=== PATIENT | male | born 1955 | race Caucasian/White ===

== ENCOUNTER 2020-06-18 13:12 | Outpatient (REF) | payer OTHER, SELFPAY ==
--- NOTE | 2020-06-18 15:22 | MHC.AU.AHA ---
Adult Audiological Evaluation Date of Visit: 06/18/20 Reason for Appointment: History of hearing loss. Patient arrives to determine if there has been a change in hearing. Previous Hearing Test Results: [facility] on 08/24[facility]2016- Normal sloping to moderate sensorineural hearing loss bilaterally Ear History: Ear Deformity: None Reported Recent Ear Drainage: None Reported Recent Ear Pain: None Reported Recent Ear Infections: None Reported History of Ear Wax Buildup: Both Ears Bothersome Tinnitus/Ringing/Noises in Ears: Both Ears Hearing Instrument History- Right Ear: Coater Slate: PhonYelp Model: Anpath Groupta BTE Serial Number: [id number] Battery Size: 13 Repair Warranty: Loss and Damage Warranty: Dispensed By: [facility] Date of Fittin08/19/2009 Hearing Instrument History- Left Ear: Coater Slate: Omedixak Model: Anpath Groupta BTE Serial Number: [id number] Battery Size: 13 Warranty: Loss and Damage Warranty: Dispensed By: [facility] Date of Fittin08/19/2009 Otoscopy: Right Ear: Completely occluded w/cerumen- cerumen removal performed Left Ear: Completely occluded w/cerumen- cerumen removal performed Tympanometry: Tympanometry performed due to: To assess integrity of the middle ear system Right Ear: Normal Middle Ear System (Type A) Left Ear: Normal Middle Ear System (Type A) Hearing Evaluation: Transducer(s) Used: Circumaural Headphones Method: Conventional Audiometry Stimuli Used: Pure Tones Right Ear: Description of Hearing: Normal sloping to severe sensorineural hearing loss Left Ear: Description of Hearing: Normal sloping to moderately-severe sensorineural hearing loss Speech Recognition Threshold (SRT): Method Used: Recorded Lists Stimuli Used: Spondee Words Right Ear: 20 dBHL Left Ear: 20 dBHL Word Discrimination: Method: Recorded Lists Word Lists Used: NU-6 Right Ear: 88% at 60 dBHL Left Ear: 100% at 60 dBHL Most Comfortable Level (MCL): Right Ear: 60 dBHL Left Ear: 60 dBHL QuickSIN: 2 dB SNR Loss, suggesting normal level of difficulty hearing in noise Comparison: Compared to most recent evaluation: Small decrease in hearing at 6000 and 8000 Hz bilaterally; otherwise, hearing is stable. Recommendations: Audiological re-evaluation in one year. Patient is interested in new amplification. See Hearing Aid Evaluation report for details. Cerumen removal performed today. All cerumen was able to be removed from the right ear. Some cerumen persists deep in the left ear; however, it is not completely occluded. Areas of irritation noted bilaterally after cerumen removal, likely due to impacted cerumen having adhered to the canal skin. Advised use of drops, such as Debrox or EarWaxMD, in the left ear before the next visit. If it is softened enough, we may be able to remove the remaining cerumen by suction at the hearing aid fitting appointment. Diagnosis: Primary Diagnosis: H90.3 Bilateral Sensorineural Hearing Loss Services Performed: Comprehensive Audiological Evaluation (CPT 25053), Tympanometry (CPT 24049) Signature: Provider: Verna Elizalde, CCC-A
== END 2020-06-18 13:13 | disposition home or self-care (01) ==
LOC: HO.SH 13:12
PROVIDERS: Visit Provider Family Medicine
DX: H90.3 Sensorineural hearing loss, bilateral (principal)
CPT/HCPCS: 92557; 92567

== ENCOUNTER 2020-06-18 14:35 | Outpatient (REF) | payer SELFPAY ==
--- NOTE | 2020-06-18 15:46 | MHC.AU.HAS ---
Hearing Aid Evaluation Date of Visit: 06/18/20 Historical Information: Description of Hearing: Right: Normal to severe sensorineural hearing loss Left: Normal to moderately-severe sensorineural hearing loss Current personal amplification information, if applicable: Phonak Versata BTEs, obtained in 2009 Summary: Patient was seen today for audiological re-evaluation (see separate report for details). He is interested in obtaining a new pair of hearing aids. His current ones are from 2009, and the slim tubes are no longer available from [facility]. Hearing aid options discussed. He would like to stay with disposable batteries. 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 It was decided that a mid-level product would best fit his listening needs. Patient's current hearing aids have custom skeleton molds. He tried using domes before, and they frequently fell out of his ear. Impressions were taken today for skeleton molds to go along with his new hearing aids. Hearing Aid Prescription: Based on the individual?s shared listening needs, communication environments, dexterity, desire for connectivity, and personal preferences, the following prescription for amplification has been made: Right ear: Chief Diversity Officer: Phonak Model: Audeo P70-13T Battery Size: 13 Color: P1 Sales And Marketing Vice President: 0M Type of Mold: Slim tip skeleton mold Left ear: Left ear prescription to be same as Right Hearing Aid above: Chief Diversity Officer: Phonak Model: Audeo P70-13T Battery Size: 13 Color: P1 Sales And Marketing Vice President: 0M Type of Mold: Slim Tip Skeleton Mold Accessories/Assistive Technology Recommended: TV Connector through Phonak Promo Action Taken/Action Needed: Earmold Impressions Taken Medical Clearance to be requested from PCP/ENT Hearing Fitting to be scheduled when materials arrive Paid $350 deposit. Will need itemized receipt at fitting to submit to [facility]. Primary Diagnosis: H90.3 Bilateral Sensorineural Hearing Loss Signature: Provider: Verna Elizalde, CCC-A
--- NOTE | 2020-06-22 10:56 | MHC.AU.MED ---
Medical Clearance for Hearing Instrumentation Date: 06/22/20 Patient Name: Tye Conte Date of : 1955 Referring Provider: Mickey Rey MD We have seen your patient on 06/18/20 and have determined that they are a candidate for amplification (See accompanying report). Specifically, they would benefit from: Hearing aid use in both ears There is a statute that addresses Medical Evaluation Requirements prior to fitting a patient with a hearing aid. According to [place] statute [facility] CMR:6.03(1), (a) General. Except as provided in 265 CMR 6.03(1)(b), a hearing care practitioner shall not sell a hearing aid unless the prospective user has presented to the hearing care practitioner a written statement signed by a licensed physician that states that the patient's hearing loss has been medically evaluated and the patient may be considered a candidate for a hearing aid. The medical evaluation must have taken place within the preceding six months. Please note: Due to the [place] Statute referenced above, we cannot accept a signature other than that of a licensed physician. SOLE BUFFER and PA signatures cannot be accepted. I am in agreement with the above recommendation. There is no medical contraindication for hearing instrumentation. Physician Signature Date Physician Name (Printed)
== END 2020-06-18 14:36 | disposition home or self-care (01) ==
LOC: HO.HAP 14:35
PROVIDERS: Visit Provider Family Medicine
DX: H90.3 Sensorineural hearing loss, bilateral (principal); Z46.1 Encounter for fitting and adjustment of hearing aid
CPT/HCPCS: 92591

== ENCOUNTER 2020-07-13 08:18 | Outpatient (REF) | payer OTHER, SELFPAY ==
--- NOTE | 2020-07-13 10:42 | MHC.AU.HFA ---
Hearing Instrument Fitting- Adult- Binaural Date of Visit: 07/13/20 Hearing Instruments Dispensed: Right Ear: Professional Nursing Tutor: Phonak Model: Vernaeo P70-13T Serial Number: [id number] Repair Warranty: 09/09/2023 Loss and Damage Warranty: 09/09/2023 Service Plan: 09/09/2023 Battery Size: 13 Color: P1 Director Of It Operations: 0M Type of Mold: Slim tip skeleton mold #[id number] Warranty 10/30/2020 Left Ear: Professional Nursing Tutor: Phonak Model: Vernaeo P70-13T Serial Number: [id number] Repair Warranty: 09/29/2023 Loss and Damage Warranty: 09/29/2023 Service Plan: 09/29/2023 Battery Size: 13 Color: P1 Director Of It Operations: 0M Type of Mold: Slim Tip Skeleton Mold #[id number] Warranty 10/30/2020 Summary of Fitting: Patient has been using Debrox since his last appointment, as advised. The impacted cerumen in the left ear appeared much softer. Suction was used to remove the cerumen. Canal is clear and tympanic membrane is fully visible. Slight irritation noted at bottom of ear canal. Feedback training and development manager run. Verifit performed and levels adjusted to better reach targets. Target gain set to 100%. Patient was pleased with the sound of the instruments. He reports they sound more clear than his previous pair, and he feels he is hearing more sounds that he did not previously hear. Volume control button is activated. Hearing aid care and maintenance discussed and practiced. Hearing aids were paired to his phone. Tried to pair the hearing aids to the vani, and it was unable to find them. In the past when I have contacted [employer] about this issue, they have said some phones need to be connected to wifi when pairing to the vani. He will pair them to the vani at home. Recommendations: A hearing instrument follow-up was scheduled. Paid the $3850 balance. Gave patient itemized receipt to submit to his insurance. Diagnosis Code(s): Primary Diagnosis: H90.3 Bilateral Sensorineural Hearing Loss Signature: Provider: Verna Elizalde, STEPHANIE-A
== END 2020-07-13 08:19 | disposition home or self-care (01) ==
LOC: HO.HAP 08:18
PROVIDERS: Visit Provider Family Medicine
DX: Z46.1 Encounter for fitting and adjustment of hearing aid (principal); H90.3 Sensorineural hearing loss, bilateral
CPT/HCPCS: V5261

== ENCOUNTER 2020-07-27 08:45 | Outpatient (REF) | payer SELFPAY ==
--- NOTE | 2020-07-27 14:26 | MHC.AU.HFU ---
Hearing Instrument Follow-Up- Binaural Date of Visit: 07/27/20 Right Ear: Miller Head: Phonak Model: Audeo P70-13T Serial Number: [id number] Repair Warranty: 09/09/2023 Loss and Damage Warranty: 09/09/2023 Service Plan: 09/09/2023 Battery Size: 13 Color: P1 Applications Engineer: 0M Type of Mold: Slim tip skeleton mold #[id number] Warranty 10/30/2020 Type of Wax Guard: CeruStop Dispensed By: [facility] Date of Fittin07/13/2020 Left Ear: Miller Head: Phonak Model: Audeo P70-13T Serial Number: [id number] Repair Warranty: 09/29/2023 Loss and Damage Warranty: 09/29/2023 Service Plan: 09/29/2023 Battery Size: 13 Color: P1 Applications Engineer: 0M Type of Mold: Slim Tip Skeleton Mold #[id number] Warranty 10/30/2020 Type of Wax Guard: CeruStop Dispensed By: [facility] Date of Fittin07/13/2020 Follow-Up Summary: Patient arrives for hearing aid follow-up. He reports the hearing aids have been working well. He has noticed a significant improvement in the quality of the technology over his 11 year old instruments. He feels they handle background noise much better and sound clearer. He has noticed that his voice, especially while singing, can have an underwater quality. Increased Occlusion Compensation to medium and lowered low-mid frequency gain by 2 steps. Patient reported an improvement in perception of his voice. Patient tried to pair the hearing aids to the vani at home. As in the office, it continued to search and was unable to find the hearing aids. He reports the overall Bluetooth usage with the phone has been great otherwise. Contacted Audiology at [facility] to troubleshoot. Patient's phone is not compatible with the vani. If he gets a new phone in the future, we would be happy to assist him with setting up the vani if needed. Since patient cannot use the vani to access programs, a Music program was added as program 1 and the program button was enabled. Recommendations: Hearing instrument maintenance in 6 months, or sooner if needed. Please contact our clinic with any questions or concerns. Diagnosis Code(s): Primary Diagnosis: H90.3 Bilateral Sensorineural Hearing Loss Signature: Provider: Verna Elizalde, CCC-A
== END 2020-07-27 08:46 | disposition home or self-care (01) ==
LOC: HO.HAP 08:45
PROVIDERS: Visit Provider Family Medicine
DX: Z13.89 Encounter for screening for other disorder (principal)

== ENCOUNTER 2021-01-08 14:46 | Outpatient (REF) | payer SELFPAY | END 2021-01-08 14:47 | disposition home or self-care (01) | LOC: HO.HAP 14:46 | PROVIDERS: Visit Provider Family Medicine | DX: Z46.1 Encounter for fitting and adjustment of hearing aid (principal); H90.3 Sensorineural hearing loss, bilateral | CPT/HCPCS: V5267 ==

== ENCOUNTER 2021-06-07 08:46 | Outpatient (REF) | payer SELFPAY | END 2021-06-07 08:47 | disposition home or self-care (01) | LOC: HO.HAP 08:46 | PROVIDERS: Visit Provider Family Medicine | DX: Z13.89 Encounter for screening for other disorder (principal) ==

== ENCOUNTER 2021-08-17 11:05 | Outpatient (REF) | payer SELFPAY | END 2021-08-17 11:06 | disposition home or self-care (01) | LOC: HO.HAP 11:05 | PROVIDERS: Visit Provider Family Medicine | DX: Z46.1 Encounter for fitting and adjustment of hearing aid (principal); H90.3 Sensorineural hearing loss, bilateral | CPT/HCPCS: V5267 ==

== ENCOUNTER 2021-10-29 12:31 | Outpatient (REF) | payer SELFPAY ==
--- NOTE | 2021-11-01 10:03 | MHC.AU.HFU ---
Hearing Instrument Follow-Up- Binaural Date of Visit: 10/29/21 Right Ear: Melter Supervisor Open Hearth Furnace: Phonak Model: Audeo P70-13T Serial Number: [id number] Repair Warranty: 09/09/2023 Loss and Damage Warranty: 09/09/2023 Service Plan: 09/09/2023 Battery Size: 13 Left Ear: Melter Supervisor Open Hearth Furnace: Phonak Model: Audeo P70-13T Serial Number: [id number] Repair Warranty: 09/29/2023 Loss and Damage Warranty: 09/29/2023 Service Plan: 09/29/2023 Battery Size: 13 Follow-Up Summary: Patient reports his left slim tip recently broke. It is still usable, but there is a large portion of the outer canal area missing. Hearing aid maintenance performed- molds cleaned, wax guards replaced, microphones vacuumed. It was noted during cleaning that a small portion of the right mold was missing as well. Patient would like to do a new pair of molds. Discussed either using Phonak again or trying another mold manager internal, as the Phonak slim tips are fairly thin/fragile. He would like to try [employer]. Impressions were taken without incident and sent to [employer]- ordered skeleton-style in Acrylic clear with medium vent. Recommendations: Patient will be contacted when materials have arrived. Diagnosis Code(s): Primary Diagnosis: H90.3 Bilateral Sensorineural Hearing Loss Signature: Provider: Verna Elizalde, [facility]
== END 2021-10-29 12:32 | disposition home or self-care (01) ==
LOC: HO.HAP 12:31
PROVIDERS: Visit Provider Family Medicine
DX: Z13.89 Encounter for screening for other disorder (principal)

== ENCOUNTER 2021-12-10 11:17 | Outpatient (REF) | payer SELFPAY | END 2021-12-10 11:18 | disposition home or self-care (01) | LOC: HO.HAP 11:17 | PROVIDERS: Visit Provider Family Medicine | DX: Z46.1 Encounter for fitting and adjustment of hearing aid (principal); H90.3 Sensorineural hearing loss, bilateral | CPT/HCPCS: 92700 ==

== ENCOUNTER 2021-12-17 14:23 | Outpatient (REF) | payer SELFPAY | END 2021-12-17 14:24 | disposition home or self-care (01) | LOC: HO.HAP 14:23 | PROVIDERS: Visit Provider Family Medicine | DX: Z13.89 Encounter for screening for other disorder (principal) ==

== ENCOUNTER 2022-01-14 12:53 | Outpatient (REF) | payer SELFPAY | END 2022-01-14 12:54 | disposition home or self-care (01) | LOC: HO.HAP 12:53 | PROVIDERS: Visit Provider Family Medicine | DX: Z13.89 Encounter for screening for other disorder (principal) ==

== ENCOUNTER 2022-01-18 09:32 | Outpatient (REF) | payer SELFPAY | END 2022-01-18 09:33 | disposition home or self-care (01) | LOC: HO.HAP 09:32 | PROVIDERS: Visit Provider Family Medicine | DX: Z13.89 Encounter for screening for other disorder (principal) ==

== ENCOUNTER 2022-01-27 09:47 | Outpatient (REF) | payer OTHER, SELFPAY | END 2022-01-27 09:48 | disposition home or self-care (01) | LOC: HO.SH 09:47 | PROVIDERS: Visit Provider Family Medicine | DX: Z01.118 Encounter for examination of ears and hearing with other abnormal findings (principal); H90.3 Sensorineural hearing loss, bilateral | CPT/HCPCS: 92557; 92567 ==

== ENCOUNTER 2022-03-16 11:27 | Outpatient (REF) | payer SELFPAY | END 2022-03-16 11:28 | disposition home or self-care (01) | LOC: HO.HAP 11:27 | PROVIDERS: Visit Provider Family Medicine | DX: Z46.1 Encounter for fitting and adjustment of hearing aid (principal); H90.3 Sensorineural hearing loss, bilateral | CPT/HCPCS: V5267 ==

== ENCOUNTER 2022-08-08 09:59 | Outpatient (REF) | payer SELFPAY ==
--- NOTE | 2022-08-08 10:36 | MHC.AU.HA3 ---
Hearing Instrument Follow-Up- Binaural Date of Visit: 08/08/22 Right Ear: Pola, Model, Color, Serial Number: Allan Liu P70-13T #[id number] Color: Yodit Beige Rail Splitter Repair Warranty: 09/09/2023 Rail Splitter Loss and Damage Warranty: 09/09/2023 [facility] Service Plan: 09/09/2023 Battery Size: 13 Visual Designer/Slim Tube: 0M Earmold/Dome/CShell/SlimTip:Phonak SlimTip w/skeleton lock, #[id number], Warranty 03/28/2022 Type of Wax Guard: CeruStop Dispensed By: [facility] Date of Fittin07/13/2020 Left Ear: Pola, Model, Color, Serial Number: Allan Liu P70-13T, [id number] Color: Sand Beige Rail Splitter Repair Warranty: 09/29/2023 Rail Splitter Loss and Damage Warranty: 09/29/2023 [facility] Service Plan: 09/29/2023 Battery Size: 13 Visual Designer/Slim Tube: 0M Earmold/Dome/CShell/SlimTip: Phonak SlimTip w/skeleton lock, #[id number], Warranty 03/28/2022 Type of Wax Guard: CeruStop Dispensed By: [facility] Date of Fittin07/13/2020 Follow-Up Summary: Tye returned for a clean and check of his hearing aids. Cleaned both hearing aids and earmolds. Replaced all 4 wax guards (2 on receivers and 2 on ear molds). Vacuumed microphones. A listening check demonstrated that the hearing aids are in good working order. Otoscopy revealed slight wax, bilaterally, with left greater than right. Cerumen removal not necessary at this time. Tye has been otherwise happy with his hearing aids and has no other concerns. Recommendations: Hearing instrument follow-up or maintenance as needed. Diagnosis Code(s): Primary Diagnosis: H90.3 Bilateral Sensorineural Hearing Loss Signature: Provider: Renae Fraser, [facility]
== END 2022-08-08 10:00 | disposition home or self-care (01) ==
LOC: HO.HAP 09:59
PROVIDERS: Visit Provider Family Medicine
DX: Z13.89 Encounter for screening for other disorder (principal)

== ENCOUNTER 2022-11-09 14:08 | Outpatient (REF) | payer SELFPAY | END 2022-11-09 14:09 | disposition home or self-care (01) | LOC: HO.HAP 14:08 | PROVIDERS: Visit Provider Family Medicine | DX: Z13.89 Encounter for screening for other disorder (principal) ==

== ENCOUNTER 2023-05-12 08:36 | Outpatient (REF) | payer SELFPAY ==
--- NOTE | 2023-05-12 10:18 | MHC.AU.HA3 ---
Hearing Instrument Follow-Up- Binaural Date of Visit: 05/12/23 Right Ear: Pola, Model, Color, Serial Number: Allan Liu P70-13T SN: [id number] Color: Sand Beige Real Estate Closer Repair Warranty: 09/09/2023 Real Estate Closer Loss and Damage Warranty: 09/09/2023 [facility] Service Plan: 09/09/2023 Battery Size: 13 Rn Eligibility/Slim Tube: 0M Earmold/Dome/CShell/SlimTip:Phonak SlimTip w/skeleton lock, #[id number], Warranty 03/28/2022 Type of Wax Guard: CeruStop Dispensed By: [facility] Date of Fittin07/13/2020 Left Ear: Pola, Model, Color, Serial Number: Allan Liu P70-13T SN: [id number] Color: Sand Beige Real Estate Closer Repair Warranty: 09/09/2023 Real Estate Closer Loss and Damage Warranty: 09/09/2023 [facility] Service Plan: 09/09/2023 Battery Size: 13 Rn Eligibility/Slim Tube: 0M Earmold/Dome/CShell/SlimTip: Phonak SlimTip w/skeleton lock, #[id number], Warranty 03/28/2022 Type of Wax Guard: CeruStop Dispensed By: [facility] Date of Fittin07/13/2020 Follow-Up Summary: Here for hearing aid cleaning. Reports no concerns at this time. Happy with the hearing aids. Cleaned aids and molds, replaced wax guards, listening check positive. Recommendations: Recommendations: Hearing instrument maintenance in 6 months, or sooner if needed. Diagnosis Code(s): Primary Diagnosis: H90.3 Bilateral Sensorineural Hearing Loss Signature: Provider: Renae Thompson, [facility]
== END 2023-05-12 08:37 | disposition home or self-care (01) ==
LOC: HO.HAP 08:36
PROVIDERS: PCP Family Medicine; Visit Provider Family Medicine
DX: Z46.1 Encounter for fitting and adjustment of hearing aid (principal); H90.3 Sensorineural hearing loss, bilateral
CPT/HCPCS: V5267

== ENCOUNTER 2023-08-07 08:48 | Outpatient (REF) | payer SELFPAY | END 2023-08-07 08:49 | disposition home or self-care (01) | LOC: HO.HAP 08:48 | PROVIDERS: Visit Provider Family Medicine | DX: Z13.89 Encounter for screening for other disorder (principal) ==

== ENCOUNTER 2023-09-07 09:26 | Outpatient (REF) | payer SELFPAY | END 2023-09-07 09:27 | disposition home or self-care (01) | LOC: HO.HAP 09:26 | PROVIDERS: Visit Provider Family Medicine | DX: Z13.89 Encounter for screening for other disorder (principal) ==

== ENCOUNTER 2023-12-28 10:39 | Outpatient (REF) | payer OTHER, SELFPAY | END 2023-12-28 10:40 | disposition home or self-care (01) | LOC: HO.SH 10:39 | PROVIDERS: Visit Provider Family Medicine | DX: Z01.118 Encounter for examination of ears and hearing with other abnormal findings (principal); H90.3 Sensorineural hearing loss, bilateral | CPT/HCPCS: 92552; 92556 ==

== ENCOUNTER 2023-12-28 11:33 | Outpatient (REF) | payer SELFPAY ==
--- NOTE | 2023-12-28 14:32 | MHC.AU.MED ---
Medical Clearance for Hearing Instrumentation Date: 12/28/23 Patient Name: Tye Conte Date of : 1955 Primary Care Provider: Referring Provider: Mickey Rey MD We have seen your patient on 12/28/23 and have determined that they are a candidate for amplification (See accompanying report). Specifically, they would benefit from: Hearing aid use in both ears There is a statute that addresses Medical Evaluation Requirements prior to fitting a patient with a hearing aid. According to [place] statute 265 CMR:6.03(1), (a) General. Except as provided in 265 CMR 6.03(1)(b), a teacher of the hearing impaired shall not sell a hearing aid unless the prospective user has presented to the teacher of the hearing impaired a written statement signed by a licensed physician that states that the patient's hearing loss has been medically evaluated and the patient may be considered a candidate for a hearing aid. The medical evaluation must have taken place within the preceding six months. Please note: Due to the [place] Statute referenced above, we cannot accept a signature other than that of a licensed physician. MIRROR INSPECTOR and PA signatures cannot be accepted. I am in agreement with the above recommendation. There is no medical contraindication for hearing instrumentation. Physician Signature Date Physician Name (Printed)
== END 2023-12-28 11:34 | disposition home or self-care (01) ==
LOC: HO.HAP 11:33
PROVIDERS: Visit Provider Family Medicine
DX: Z46.1 Encounter for fitting and adjustment of hearing aid (principal); H90.3 Sensorineural hearing loss, bilateral
CPT/HCPCS: 92590

== ENCOUNTER 2024-01-15 12:48 | Outpatient (REF) | payer SELFPAY | END 2024-01-15 12:49 | disposition home or self-care (01) | LOC: HO.HAP 12:48 | PROVIDERS: Visit Provider Family Medicine | DX: Z46.1 Encounter for fitting and adjustment of hearing aid (principal); H90.3 Sensorineural hearing loss, bilateral | CPT/HCPCS: V5261; V5264 ==

== ENCOUNTER 2024-02-09 13:02 | Outpatient (REF) | payer SELFPAY ==
--- OUTSIDE RECORDS SUMMARY | 2024-02-09 14:36 | XMS_ITS | Data Portability ---
Author Organization [facility], [facility] Address [address] [place] [address] Care Team Providers Care Air Analyst Name Role Phone AMRIA LUISA REY Primary Care Provider [phone] Assessment Encounter Date Assessment Date Assessment LastModified by Organization Details LastModified Time 05/22/2015 05/22/2015 59yo man with a history of hyperlipidemia, subclinical hypothyroidism since age 58 years (dry skin, mild depression, fatigue and cold intolerance), kindly referred by Dr. Rey for hypothyroidism. Labs noted: 05/08/15 tsh 1.4mU/L, 11/06/14 tsh 3mU/L, ft4 1.2ng/dL, 08/20 tsh 2.4mU/L, 02/25/14 tsh 5.2mU/L, ft4 1ng/dL, 01/31/14 tsh 4.6mU/L, ft4 0.95ng/dL. Unfortunately, symptoms of hypothyroidism are stable, and we discussed this in the context of his borderline thyroid hormone.?? However, LDL has improved dramaticlly by 26% since starting thyroid hormone therapy, so I suggest continuing the current dose.?? Trialing off and repeating a lipid panel in the future could be considered, which he declines for now.?? He will return as needed in the future. [facility] Not available 05/22/2015 09:05:13 Plan of Treatment Reminders Order Date Submit Date Provider Last Modified By Organization Details Last Modified Time Details Appointments None recorded. Lab None recorded. Referral None recorded. Procedures None recorded. Surgeries None recorded. Imaging None recorded. Medication Orders Levoxyl 50 mcg tablet 016 016 [facility]/Pharmacy #[id number], [address] [place], [address], 6 09:05:13 Patient TargetsNo targets recorded. Patient Instructions Encounter Date Encounter Id Patient Instructions Last Modified By Organization Details Last Modified Time 05/22/2015 [id number] -continue levoxy l 50mcg by mouth once daily, may substitute generic levothyroxine -tsh annually or as needed for change in mood, weight, dry skin, or cold feelings -return as needed [email or web address] Not available 05/22/2015 09:05:14 Reason for Referral None Reported. Results Created Date Observation Date Name Description Value Unit Range Abnormal Flag Note LastModifiedBy Organization Detail LastModifiedTime 05/08/19 16 05/08/2015 TSH, serum or plasm a TSH 1.390 mU/L 0.270- 4.200 Not Available [facility] (Outpatient) [address] [place], [address], 05/08/2015 10:06:07 01/17/20 23 01/16/2023 XR, knee, weigh tbear ing CLINIC AL HISTOR Y: Right knee pain. TECHNI QUE: AP, PA flexed and sunris e views of both knees obtain ed. A latera l view of the right knee is added. Weight bearin g images are includ ed. COMPAR EZEQUIEL: None. FINDIN GS: Right knee: There is no fractu re, sublux ation or disloc ation. The joint spaces are mainta ined. Left knee: There is no fractu re, sublux ation or disloc ation. The joint spaces are mainta ined. IMPRES JUAN: No acute bone abnorm ality. Readin heriberto Physic socrates: Brie Inman ms [facility] (Imaging) [address], [place], [address], 01/17/2023 08:32:52 Result Notes None recorded. Problems Name Problem SNOMED Code Status Onset Date Resolution Date Notes Provider Name and Address Organization Details Recorded Time Hypothyroidism 00138451 Active Sedrick Guajardo MD [address] [place] [address], [place], [address] , [facility] 6 09:05:13 Stress fracture Active foot Lily Dumas RN [facility], [facility] 6 11:40:01 Depressive disorder 48320384 Active Lily Dumas RN null, [facility] 6 11:40:01 Excoriated eczema 023325180 Active Lily Dumas RN null, [facility] 6 11:40:01 Asthma 100298375 Active Lily Dumas RN null, [facility] 6 11:40:01 Hyperlipidemia 13595626 Active Lily Dumas RN null, [facility] 6 11:40:01 Problem Notes None recorded. Procedures Surgical History Date Name Laterality Status Provider Name and Address Organization Details Recorded Time 02/06/1979 Other (specify) completed Mora Zamora RN BSN [address] [place] [address], [phone], [facility] 05/22/2015 08:33:59 Imaging Results Imaging Date Name Status LastModified by Organization Details LastModified Time 01/16/2023 XR, knee, weightbearing completed [facility] (Imaging) [address], [place], [address], 01/17/2023 08:32:52 Procedure Notes None recorded. Medical Equipment None Reported. Allergies Allergen ID Allergen Name Allergen Category Reaction Reaction Severity Criticality Documentation Date Start Date Code Code System Note Provider Name and Address Organization Details Recorded Time 931711 Medicinal product containin g penicilli n and acting as antibacte rial agent (product) medicatio n rash Not available Not available 03/11/2015 96169 05 SNOMED Lily Dumas RN null, [facility] 6 09:23:59 Medications Name Sig Start Date Stop Date Status Note LastModified by Organization Details LastModified Time triamcinolon e acetonide 0.5 % topical cream active Not Available Not Available Not Available atorvastatin 10 mg tablet TAKE 1 TABLET BY MOUTH EVERY DAY active Not Available Not Available No t Available meloxicam 15 mg tablet TAKE 1 TABLET BY MOUTH DAILY FOR 10 DAYS WITH FOOD active Not Available Not Available No t Available Zovirax 200 mg/5 mL oral suspension Take 20 mL every 4 hours by oral route for 10 days. active prn Not Available Not Available No t Available Levoxyl 25 mcg tablet active Not Available Not Available N ot Available benzonatate 100 mg capsule active Not Available Not Available Not Available levothyroxin e 50 mcg tablet TAKE 1 TABLET BY MOUTH EVERY DAY IN THE MORNING active Not Available Not Available No t Available Qvar 40 mcg/actuatio n Metered Aerosol oral inhaler Inhale 2 puffs twice a day by inhalation route. active Not Available Not Available No t Available levalbuterol HFA 45 mcg/actuatio n aerosol inhaler INHALE 2 PUFFS INTO THE LUNGS EVERY 6 HOURS NEEDED FOR WHEEZE active Not Available Not Available No t Available miconazole apply topical cream prn active Not Available Not Available No t Available ProAir HFA 90 mcg/actuatio n aerosol inhaler Inhale 2 puffs every 4 hours by inhalation route. active prn Not Available Not Available No t Available selenium sulfide 2.5 % lotion active Not Available Not Available Not Available Qvar RediHaler 40 mcg/actuatio n HFA breath activated aerosol TAKE 2 PUFFS BY MOUTH TWICE A DAY active Not Available Not Available No t Available Paxlovid 300 mg (150 mg x 2)-100 mg tablets in a dose pack TAKE 3 TABLETS BY MOUTH TWICE A DAY FOR 5 DAYS active Not Available Not Available No t Available Vitals Date Recorded Body weight Body height Heart rate Body mass index (BMI) Systolic blood pressure Diastolic blood pressure Provider Name and Address Organization Details Last Updated DateTime 6 [address]12.2 9527 g 180.34 cm 56 /min 23.8 kg/m2 126 mm[Hg] 68 mm[Hg] Mora Zamora RN BSN [address] [place], [address], [facility] 6 08:39:12 Social History Question Answer Notes LastModified by Organizat ion Details LastModified Time Tobacco Smoking Status Never Smoker 05/22/15 Mora Zamora RN BSN [address] [place], [address], [facility] 05/22/2015 08:33:59 What Is Your Level Of Alcohol Consumption? Occasional Couple Of Drinks 3 Times Per Month 05/22/15 Information not available 05/22/2015 Which Illicit Or Recreational Drugs Have You Used? 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 2 Information not available 05/15/2015 General Stress Level Medium Information not available 05/15/2015 Sex: Unknown Functional Status None recorded. Mental Status None recorded. Family History Relationship Description Onset Age of this Age Resolved Age Notes LastModified by Organization Details LastModified Time Mother Chronic obstructive pulmonary disease [email or web address] Not available 2015 08:42:28 Mother Hyperlipidem ia [facility]itzer Not available 2015 08:42:28 Mother Peripheral arterial occlusive disease [place] [facility]itzer Not available 05/22/2015 08:42:28 Father Malignant tumor of prostate [facility]itzer Not available 2015 08:42:28 Father Hypertensive disorder [facility]spitzer Not available 2015 08:42:28 Father Cerebrovascu lar accident mspitzer Not available 08:42:28 Father Hypothyroidi sm [facility]itzer Not available 2015 08:42:28 Paternal Grandfather Malignant tumor of colon [facility]spitzer Not available 2015 08:42:28 Medical History Condition Response eczema Y Hyperlipidemia Y Hypothyroid Y Depression Y Asthma Y Past Encounters Encounter ID Performer Location Encounter Start Date Encounter Closed Date Diagnosis/Indication Diagnosis SNOMED-CT Code Diagnosis ICD10 Code [id number] Sedrick Guajardo MD [facility] [address] 05/22/2015 08:22:21 05/22/2015 10:23:48 Hypothyroidism 55703959 E03.9 Health Concerns Section Related Observation LastModified by Organization Detai ls LastModified Time None Recorded Concern Status LastModified by Organization Details LastModified Time None Recorded Advance Directives Directive None Recorded Payers Encounter Date Sequence Insurance Name Policy Number Policy Aquino Covered Member ID Aquino Member ID Guarantor Name 05/22/2015 1 [facility] (IN[facility]MN[facility]) [id number] Tye Conte [id number] Tye Conte Notes Date Note Type Note Provider Name and Address Organization Details Recorded Time 05/22/2015 text/html ThyroidReported bypatient.Constitutio nal:no cold intolerance; no weight loss; no weight gain; stable Neck:no difficulty swallowing; no voice changes Heart:no palpitations GI:no constipation Neurological:no tremor HPI 59yo man with a history of hyperlipidemia, subclinical hypothyroidism since age 58 years (dry skin, mild depression, fatigue and cold intolerance), kindly referred by Dr. Rey for hypothyroidism. Labs noted: 05/08/15 tsh 1.4mU/L, 11/06/14 tsh 3mU/L, ft4 1.2ng/dL, 08/20 tsh 2.4mU/L, 02/25/14 tsh 5.2mU/L, ft4 1ng/dL, 01/31/14 tsh 4.6mU/L, ft4 0.95ng/dL. levoxyl 50mcg daily he had been on 25 of levoxyl for a while, he would like to connect with an outsole skiver; he is on 50mcg daily of levothyroxine, has had varying levels of tsh, went up high, then started on thyroid hormone, down to 2 to 3, up above 3, increased to 50mcg daily, last tsh 1.39 he fels ok, up and down some days he feels not great he does not sleep that much stays up too late, gets up too early, tired in the evening mood varies, not fantastic; occasional depressed, anxious today due to son having a mouth biopsy, not as happy as he was, a bit stressed, unsure how related; still enjoys getting out and seeing friends, not seriously depressed, no suicide sometimes feels that things are weighing on him a bit, backa nd forth to [place] 2 teenage kids a lot of work dry skin, mild depression, fatigue and cold intolerance are not different since starting the thyroid pill ; but cholesterol is lower ? Sedrick Guajardo MD [address] [place] [address], [phone], [facility] 05/22/2015 09:05:53
== END 2024-02-09 13:03 | disposition home or self-care (01) ==
LOC: HO.HAP 13:02
PROVIDERS: Visit Provider Family Medicine
DX: Z46.1 Encounter for fitting and adjustment of hearing aid (principal); H90.3 Sensorineural hearing loss, bilateral
CPT/HCPCS: 92593

== ENCOUNTER 2024-04-17 16:16 | Outpatient (REF) | payer SELFPAY ==
--- NOTE | 2024-04-17 16:43 | MHC.AU.HA3 ---
Hearing Instrument Follow-Up- Binaural Date of Visit: 04/17/24 Right Ear: Pola, Model, Color, Serial Number: [id number] SN: [id number] Color: Roldane Manager Location Repair Warranty: 02/03/2027 Manager Location Loss and Damage Warranty: 02/03/2027 [facility] Service Plan: n/a Battery Size: 13 Continuous Vulcanizing Machine Operator/Slim Tube: 0M Earmold/Dome/CShell/SlimTip:Phonak SlimTip w/skeleton lock, #[id number] Warranty 05/04/2024 Type of Wax Guard: CeruStop Dispensed By: [facility] Date of Fittin07/13/2020 Left Ear: Pola, Model, Color, Serial Number: [id number] SN: [id number] Color: Roldane Manager Location Repair Warranty: 02/03/2027 Manager Location Loss and Damage Warranty: 02/03/2027 [facility] Service Plan: n/a Battery Size: 312 Continuous Vulcanizing Machine Operator/Slim Tube: 0M Earmold/Dome/CShell/SlimTip: Phonak SlimTip w/skeleton lock, #[id number] Warranty 05/04/2024 Type of Wax Guard: CeruStop Dispensed By: [facility] Date of Fittin07/13/2020 Follow-Up Summary: Tye reports his left hearing aid is not working, has tried changing battery and wax guard. Cleaned both aids, replaced wax guards. Found left parts delivery driver to be . Replaced parts delivery driver. Listening check positive. Reviewed how to remove molds so as to not put strain on wires. Recommendations: Recommendations: Hearing instrument follow-up or maintenance as needed. Diagnosis Code(s): Primary Diagnosis: H90.3 Bilateral Sensorineural Hearing Loss Signature: Provider: Renae Thompson, [facility]
--- OUTSIDE RECORDS SUMMARY | 2024-04-17 18:33 | XMS_ITS | Data Portability ---
Author Organization [facility], [facility] Address [address] [place] [address] Care Team Providers Care Justice Court Deputy Clerk Name Role Phone MARIA LUISA REY Primary Care Provider Assessment Encounter Date Assessment Date Assessment LastModified [...] in the context of his borderline thyroid hormone.? ? ? However, LDL has improved dramaticlly by 26% since starting thyroid hormone therapy, so I suggest continuing the current dose.? ? ? Trialing off and repeating a lipid panel in the future could be considered, which he declines for now.? ? ? He will return as needed in the future. [email or web address] Not available 05/22/2015 09:05:13 Plan of Treatment Reminders Order Date Submit Date Provider Last Modified By Organization Details Last Modified Time Details Appointments None recorded. Lab None recorded. Referral None recorded. Procedures None recorded. Surgeries None recorded. Imaging None recorded. Medication Orders Levoxyl 50 mcg tablet 016 016 [facility]/Pharmacy #[id number], [address] [place], [address], 6 09:05:13 Patient TargetsNo targets recorded. Patient Instructions Encounter Date Encounter Id Patient Instructions Last Modified By Organization Details Last Modified Time 05/22/2015 [id number] -continue levoxy l 50mcg by mouth once [...] TSH 1.390 mU/L 0.270- 4.200 Not Available [facility] (Outpatient) [address] [place], [address], 05/08/2015 10:06:07 01/17/20 23 01/16/2023 XR, knee, [...] JUAN: No acute bone abnorm ality. Readin g Physic socrates: Brie Inman ms [facility] (Imaging) [address], [place], [address], 01/17/2023 08:32:52 Result Notes None recorded. Problems Name Problem SNOMED Code Status Onset Date Resolution Date Notes Provider Name and Address Organization Details Recorded Time Hypothyroidism 91887272 Active Sedrick Guajardo MD [address] [place] [address], [place], [address] , [facility] 6 09:05:13 Stress fracture Active foot Lily Dumas RN [facility], [facility] 6 11:40:01 Depressive disorder 36723936 Active Lily Dumas RN null, [facility] 6 11:40:01 Excoriated eczema 262747790 Active Lily Dumas RN null, [facility] 6 11:40:01 Asthma 064334083 Active Lily Dumas RN null, [facility] 6 11:40:01 Hyperlipidemia 90616124 Active Lily Dumas RN null, [facility] 6 11:40:01 Problem Notes None recorded. Procedures Surgical History Date Name Laterality Status Provider Name and Address Organization Details Recorded Time 02/06/1979 Other (specify) completed Mora Zamora RN BSN [address] [place] [address], [phone], [facility] 05/22/2015 08:33:59 Imaging Results Imaging Date Name Status LastModified by Organization Details LastModified Time 01/16/2023 XR, knee, weightbearing completed [facility] (Imaging) [address], [place], [address], 01/17/2023 08:32:52 Procedure Notes None recorded. Medical Equipment None Reported. Allergies Allergen ID Allergen Name Allergen Category Reaction Reaction Severity Criticality Documentation Date Start Date Code Code System Note Provider Name and Address Organization Details Recorded Time 922843 Product containin g penicilli n (product) medicatio n rash Not available Not available 03/11/2015 95676 8001 SNOMED Lily Dumas RN null, [facility] 6 09:23:59 Medications Name Sig Start Date [...] Address Organization Details Last Updated DateTime 6 69248.2 9527 g 180.34 cm 56 /min 23.8 kg/m2 126 mm[Hg] 68 mm[Hg] Mora Zamora RN BSN [address] [place], [address] [facility] 6 08:39:12 Social History Question Answer Notes LastModified by Organizat ion Details LastModified Time Tobacco Smoking Status Never Smoker 05/22/15 Mora Zamora RN BSN [address] [place], [address], [facility] 05/22/2015 08:33:59 What Is Your Level Of Alcohol Consumption? Occasional Couple Of Drinks 3 Times Per Month 05/22/15 Information not available 05/22/2015 Which Illicit Or Recreational Drugs Have You Used? 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 05/15/2015 Marital Status Informatio [...] available 2015 08:42:28 Medical History Condition Response Depression Y eczema Y Hypothyroid Y Hyperlipidemia Y Asthma Y Past Encounters Encounter ID Performer Location Encounter Start Date Encounter Closed Date Diagnosis/Indication Diagnosis SNOMED-CT Code Diagnosis ICD10 Code Diagnosis Note [id number] Sedrick Guajardo MD [facility], [address] [address] 05/22/2015 08:22:21 05/22/2015 10:23:48 Hypothyroidism 54363924 E03.9 -continue levoxyl 50mcg by mouth once daily, may substitute generic levothyrox ine -tsh annually or as needed for change in mood, weight, dry skin, or cold feelings -return as needed Health Concerns Section Related Observation LastModified by Organization Detai ls LastModified Time None Recorded Concern Status LastModified by Organization Details LastModified Time None Recorded Advance Directives Directive None Recorded Payers Encounter Date Sequence Insurance Name Policy Number Policy Aquino Covered Member ID Aquino Member ID Guarantor Name 05/22/2015 1 [facility] (INDEMNITY) [id number] Tye Conte [id number] Tye Conte Notes Date Note Type Note Provider Name and Address Organization Details Recorded Time 05/22/2015 text/html ThyroidReported bypatient.Davidetio nal:no cold intolerance; no weight loss; no [...] he would like to connect with an sewage plant supervisor; he is on 50mcg daily of levothyroxine, [...] cholesterol is lower ? Sedrick Guajardo MD [address] [place] [address], [address], [facility] 05/22/2015 09:05:53
== END 2024-04-17 16:17 | disposition home or self-care (01) ==
LOC: HO.HAP 16:16
PROVIDERS: Visit Provider Family Medicine
DX: Z46.1 Encounter for fitting and adjustment of hearing aid (principal); H90.3 Sensorineural hearing loss, bilateral
CPT/HCPCS: 92593

== ENCOUNTER 2024-06-26 13:06 | Outpatient (REF) | payer SELFPAY ==
--- OUTSIDE RECORDS SUMMARY | 2024-06-26 13:42 | XMS_ITS | Data Portability ---
Author Organization [facility], [facility] Address [address] [place] [address] Care Team Providers Care Senior Oracle Dba Name Role Phone MARIA LUISA REY Primary [...] Levoxyl 50 mcg tablet 016 016 msprobinson [facility] #[id number], [address] [place], [address], 6 09:05:13 Patient TargetsNo targets recorded. Patient Instructions Encounter Date Encounter Id Patient Instructions Last Modified By Organization Details Last Modified Time 05/22/2015 [id number] -continue levoxy l 50mcg by mouth once [...] TSH 1.390 mU/L 0.270- 4.200 Not Available [facility] (Outpatient) [address] [place], [address], 05/08/2015 10:06:07 01/17/20 23 01/16/2023 XR, knee, [...] Readin g Physic socrates: Brie Inman ms [facility] (Imaging) [address], [place], [address], 01/17/2023 08:32:52 Result Notes None recorded. Problems Name Problem SNOMED Code Status Onset Date Resolution Date Notes Provider Name and Address Organization Details Recorded Time Hypothyroidism 17329199 Active Sedrick Guajardo MD [address] [place] [address], [place], [address] , [facility] 6 09:05:13 Stress fracture Active foot Lily Dumas RN [facility], [facility] 6 11:40:01 Depressive disorder 32781196 Active Lily Dumas RN null, [facility] 6 11:40:01 Excoriated eczema 250656429 Active Lily Dumas RN null, [facility] 6 11:40:01 Asthma 216438915 Active Lily Dumas RN null, [facility] 6 11:40:01 Hyperlipidemia 16980357 Active Lily Dumas RN null, [facility] 6 11:40:01 Problem Notes None recorded. Procedures Surgical History Date Name Laterality Status Provider Name and Address Organization Details Recorded Time 02/06/1979 Other (specify) completed Mora Zamora RN BSN [address] [place] [address], [address], [facility] 05/22/2015 08:33:59 Imaging Results Imaging Date Name Status LastModified by Organization Details LastModified Time 01/16/2023 XR, knee, weightbearing completed [facility] (Imaging) [address], [place], [address], 01/17/2023 08:32:52 Procedure Notes None recorded. Medical Equipment None Reported. Allergies Allergen ID Allergen Name Allergen Category Reaction Reaction Severity Criticality Documentation Date Start Date Code Code System Note Provider Name and Address Organization Details Recorded Time 612365 Product containin g penicilli n (product) medicatio n rash Not available Not available 03/11/2015 54795 8001 SNOMED Lily Dumas RN null, [facility] 6 09:23:59 Medications Name Sig [...] Address Organization Details Last Updated DateTime 6 49090.2 9527 g 180.34 cm 56 /min 23.8 kg/m2 126 mm[Hg] 68 mm[Hg] Mora Zamora RN BSN [address] [place], [address] 1[facility] 6 08:39:12 Social History Question Answer Notes LastModified by Organizat ion Details LastModified Time Tobacco Smoking Status Never Smoker 05/22/15 Mora Zamora RN BSN [address] [place], [address], [facility] 05/22/2015 08:33:59 Which Illicit Or Recreational Drugs Have You Used? Denies 05/22/15 Information not available 05/22/2015 Education Post Graduate robert Information not available 05/15/2015 Marital Status robert Informmichaelo n not available 05/15/2015 How Many Children Do You Have? 2 Information not available 05/15/2015 General Stress Level Medium Information not available 05/15/2015 Sex: Unknown Functional Status Question Answer Note LastModified by Organizat ion Details LastModified Time What is your level of alcohol consumption? 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 Family History Relationship Description Onset Age of this Age Resolved Age Notes LastModified by Organization Details LastModified Time Mother Chronic obstructive pulmonary disease [email or web address] Not available 2015 08:42:28 Mother Hyperlipidem ia mspitzer Not available 2015 08:42:28 Mother Peripheral arterial occlusive disease [place] mspitzer Not available 05/22/2015 08:42:28 Father Malignant neoplasm of prostate mspitzer Not available 2015 08:42:28 Father Hypertensive disorder mspitzer Not available 2015 08:42:28 Father Cerebrovascu lar accident mspitzer Not available 08:42:28 Father Hypothyroidi sm mspitzer Not available 2015 08:42:28 Paternal Grandfather Malignant tumor of colon mspitzer Not available 2015 08:42:28 Medical History Condition Response Hypothyroid Y Hyperlipidemia Y Depression Y Asthma Y eczema Y Past Encounters Encounter ID Performer Location Encounter Start Date Encounter Closed Date Diagnosis/Indication Diagnosis SNOMED-CT Code Diagnosis ICD10 Code Diagnosis Note [id number] Sedrick Guajardo MD Endocrino [facility], [address] [address] 05/22/2015 08:22:21 05/22/2015 10:23:48 Hypothyroidism 39566787 E03.9 -continue levoxyl 50mcg by mouth once [...] Aquino Member ID Guarantor Name 05/22/2015 1 [facility] (INDEMNITY) [id number] Tye Conte [id number] Tye Conte Notes Date Note Type Note [...] he would like to connect with an radio dispatcher; he is on 50mcg daily of levothyroxine, [...] him a bit, backa nd forth to [place] 2 teenage kids a lot of work dry skin, mild depression, fatigue and cold intolerance are not different since starting the thyroid pill ; but cholesterol is lower ? Sedrick Guajardo MD [address] [place] [address], [phone], [facility] 05/22/2015 09:05:53
== END 2024-06-26 13:07 | disposition home or self-care (01) ==
LOC: HO.SH 13:06
PROVIDERS: Visit Provider Family Medicine
DX: Z46.1 Encounter for fitting and adjustment of hearing aid (principal); H90.3 Sensorineural hearing loss, bilateral
CPT/HCPCS: V5267

== ENCOUNTER 2024-07-10 16:15 | Outpatient (REF) | payer SELFPAY ==
--- NOTE | 2024-07-11 08:22 | MHC.AU.HA3 ---
Hearing Instrument Follow-Up- Binaural Date of Visit: 07/10/24 Right Ear: Pola, Model, Color, Serial Number: [id number] SN: [id number] Color: Katia Decision Support Analyst Repair Warranty: 02/03/2027 Decision Support Analyst Loss and Damage Warranty: 02/03/2027 [facility] Service Plan: opt out Battery Size: 312 Eyeglass Lens Grinder/Slim Tube: 0M Earmold/Dome/CShell/SlimTip:Phonak SlimTip w/skeleton lock, #[id number] Warranty 05/04/2024 Type of Wax Guard: CeruStop Dispensed By: [facility] Date of Fittin01/15/2024 Left Ear: Pola, , Color, Serial Number: [id number] SN: [id number] Color: Katia Decision Support Analyst Repair Warranty: 02/03/2027 Decision Support Analyst Loss and Damage Warranty: 02/03/2027 [facility] Service Plan: opt out Battery Size: 312 Eyeglass Lens Grinder/Slim Tube: 0M Earmold/Dome/CShell/SlimTip: Phonak SlimTip w/skeleton lock, #[id number] Warranty 05/04/2024 Type of Wax Guard: CeruStop Dispensed By: [facility] Date of Fittin07/13/2020 Follow-Up Summary: Tye reports right hearing aid has been intermittent. Noted wax in wax guard upon removal of hearing aid from ear. Tye notes he has been changing wax guards frequently. Otoscopy reveals visually occluding cerumen Au. See wax removal note. Cleaned aids. Changed wax guards, right still a bit weak, found wax built up behind wax guard in slim tip. Replaced right second facing baster due to stretching it while attempting to remove from slim tip. Listening check positive. Tye reports improvement. Recommendations: Recommendations: Hearing instrument follow-up or maintenance as needed. Diagnosis Code(s): Primary Diagnosis: H90.3 Bilateral Sensorineural Hearing Loss Signature: Provider: Renae Thompson, [facility]
--- NOTE | 2024-07-11 08:37 | MHC.AU.CER ---
Cerumen Removal- Binaural Date of Visit: 07/10/24 Medical Conditions: Tinnitus Eczema No Conditions of Concern for Cerumen Removal Medications: No Medications of Concern for Cerumen Removal Procedure: Right Ear: Prior to Removal: Significant Cerumen Present Outcome of Procedure: Cerumen was easily removed Most cerumen was removed. Tympanic membrane is now visible. Other: Cerumen removed without complication using loupe, lighted curette, forceps. Left Ear: Prior to Removal: Significant Cerumen Present Outcome of Procedure: Encountered difficulty removing cerumen. Very little to no cerumen was able to be removed. Other: After removal of small amount of cerumen encountered very hardened wax that could not be removed. Recommendations: Recommendations: Use of cerumen drops, such as Debrox or EarWaxMD Recommendations (Other): Return in two weeks for check of left ear after use of wax softening ear drops. Diagnosis Code(s): Primary Diagnosis: H61.23 Impacted Cerumen, Bilateral Secondary Diagnosis: H90.3 Bilateral Sensorineural Hearing Loss Signature: Provider: Renae Thompson, [facility]
== END 2024-07-10 16:16 | disposition home or self-care (01) ==
LOC: HO.HAP 16:15
PROVIDERS: Visit Provider Family Medicine
DX: Z46.1 Encounter for fitting and adjustment of hearing aid (principal); H90.3 Sensorineural hearing loss, bilateral
CPT/HCPCS: 92593; 92700

== ENCOUNTER 2024-07-26 10:00 | Outpatient (REF) | payer SELFPAY ==
--- OUTSIDE RECORDS SUMMARY | 2024-07-26 10:18 | XMS_ITS | Data Portability ---
Author Organization [facility], [facility] Address [address] [place] [address] Care Team Providers Care Ore Tester Name Role Phone MARIA LUISA REY Primary [...] in the context of his borderline thyroid hormone. However, LDL has improved dramaticlly by 26% since starting thyroid hormone therapy, so I suggest continuing the current dose. Trialing off and repeating a lipid panel in the future could be considered, which he declines for now. He will return as needed in the future. [email or web address] Not available 05/22/2015 09:05:13 Plan of Treatment Reminders Order Date Submit Date Provider Last Modified By Organization Details Last Modified Time Details Appointments None recorded. Lab None recorded. Referral None recorded. Procedures None recorded. Surgeries None recorded. Imaging None recorded. Medication Orders Levoxyl 50 mcg tablet 016 016 msprobinson [facility]armacy #[id number], [address] [place], [address], 6 09:05:13 Patient TargetsNo targets recorded. Patient Instructions Encounter Date Encounter Id Patient Instructions Last Modified By Organization Details Last Modified Time 05/22/2015 [id number] -continue levoxy l 50mcg by mouth once [...] TSH 1.390 mU/L 0.270- 4.200 Not Available [facility] (Outpatient) [address] [facility], [place], [address], 05/08/2015 10:06:07 01/17/20 23 01/16/2023 XR, knee, [...] Readin g Physic socrates: Brie Inman ms [facility] (Imaging) [address], [place], [address], 01/17/2023 08:32:52 Result Notes Documentation Provider Name and Address Organization Details Recorded Time Xr, Knee, Weightbearing : CLINICAL HISTORY: Right knee pain. TECHNIQUE: AP, PA flexed and sunrise views of both knees obtained. A lateral view of the right knee is added. Weightbearing images are included. COMPARISON: None. FINDINGS: Right knee: There is no fracture, subluxation or dislocation. The joint spaces are maintained. Left knee: There is no fracture, subluxation or dislocation. The joint spaces are maintained. IMPRESSION: No acute bone abnormality. Reading Physician: Froy Gardner [facility], [facility] 01/17/2023 08:32:52 Problems Name Problem SNOMED Code Status Onset Date Resolution Date Notes Provider Name and Address Organization Details Recorded Time Hypothyroidism 69432118 Active Sedrick Guajardo MD [address] [place] [address], [address], [facility] 6 09:05:13 Stress fracture Active foot Lily Dumas RN null, [facility] 6 11:40:01 Depressive disorder 39589268 Active Lily Dumas RN null, [facility] 6 11:40:01 Excoriated eczema 534145314 Active Lily Dumas RN null, [facility] 6 11:40:01 Asthma 294433440 Active Lily Dumas RN null, [facility] 6 11:40:01 Hyperlipidemia 90832251 Active Lily Dumas RN [facility], [facility] 6 11:40:01 Problem Notes None recorded. Procedures Surgical History Date Name Laterality Status Provider Name and Address Organization Details Recorded Time 02/06/1979 Other (specify) completed Mora Zamora RN BSN [address] [place] [address], [address], [facility] 05/22/2015 08:33:59 Imaging Results None recorded. Procedure Notes None recorded. Medical Equipment None Reported. Allergies Allergen ID Allergen Name Allergen Category Reaction Reaction Severity Criticality Documentation Date Start Date Code Code System Note Provider Name and Address Organization Details Recorded Time 203360 Product containin g penicilli n (product) medicatio n rash Not available Not available 03/11/2015 88599 8001 SNOMED Lily Dumas RN null, [facility] 6 09:23:59 Medications Name Sig [...] Address Organization Details Last Updated DateTime 6 74318.2 9527 g 180.34 cm 56 /min 23.8 kg/m2 126 mm[Hg] 68 mm[Hg] Mora Zamora RN BSN [address] [place], [address], [facility] 6 08:39:12 Social History Question Answer Notes LastModified by Organizat ion Details LastModified Time Tobacco Smoking Status Never Smoker 05/22/15 Mora Zamora RN BSN [address] [place], [address], [facility] 05/22/2015 08:33:59 Which Illicit Or Recreational Drugs Have You Used? Denies 05/22/15 Information not available 05/22/2015 Education Post Graduate [email or web address] Information not available 05/15/2015 Marital Status robert Informatio n not available 05/15/2015 How Many Children Do You Have? 2 Information not available 05/15/2015 General Stress Level Medium Information not available 05/15/2015 Sex: Unknown Functional Status Question Answer Note LastModified by Organizat ion Details LastModified Time What is your level of alcohol consumption? 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 Information not available 05/15/2015 Mental Status None [...] 08:42:28 Medical History Condition Response Depression Y Hypothyroid Y Hyperlipidemia Y Asthma Y eczema Y Past Encounters Encounter ID Performer Location Encounter Start Date Encounter Closed Date Diagnosis/Indication Diagnosis SNOMED-CT Code Diagnosis ICD10 Code Diagnosis Note [id number] Sedrick Guajardo MD [facility], [address] [address] 05/22/2015 08:22:21 05/22/2015 10:23:48 Hypothyroidism 26939016 E03.9 -continue levoxyl 50mcg by mouth once daily, may substitute generic levothyrox ine -tsh annually or as needed for change in mood, weight, dry skin, or cold feelings -return as needed Health Concerns Section Related Observation LastModified by Organization Detai ls LastModified Time None Recorded Concern Status LastModified by Organization Details LastModified Time None Recorded Advance Directives Directive None Recorded Payers Insurance Date Sequence Insurance Name Policy Number Policy Aquino Covered Member ID Aquino Member ID Guarantor Name 01/13/2023 1 [facility] (INDEMN[facility]) [id number] Tye Conte [id number] Tye Conte Notes Date Note Type Note [...] he would like to connect with an container coordinator; he is on 50mcg daily of levothyroxine, [...] thyroid pill ; but cholesterol is lower Sedrick Guajardo MD [address] [place] [address], [address], [facility] 05/22/2015 09:05:53
--- NOTE | 2024-07-26 12:28 | MHC.AU.HA3 ---
Hearing Instrument Follow-Up- Binaural Date of Visit: 07/26/24 Right Ear: Pola, , Color, Serial Number: Allan [id number] SN: [id number] Color: Roldane Operations Controller Repair Warranty: 02/03/2027 Operations Controller Loss and Damage Warranty: 02/03/2027 [facility] Service Plan: opt out Battery Size: 13 Insulator Apprentice/Slim Tube: 0M Earmold/Dome/CShell/SlimTip:Phonak SlimTip w/skeleton lock, #[id number] Warranty 05/04/2024 Type of Wax Guard: CeruStop Dispensed By: [facility] Date of Fittin01/15/2024 Left Ear: Pola, , Color, Serial Number: Allan [id number] SN: [id number] Color: Katia Operations Controller Repair Warranty: 02/03/2027 Operations Controller Loss and Damage Warranty: 02/03/2027 [facility] Service Plan: opt out Battery Size: 312 Insulator Apprentice/Slim Tube: 0M Earmold/Dome/CShell/SlimTip: Phonak SlimTip w/skeleton lock, #[id number] Warranty 05/04/2024 Type of Wax Guard: CeruStop Dispensed By: [facility] Date of Fittin07/13/2020 Follow-Up Summary: Tye returned to have his left ear checked after cerumen could not be removed on 07/10/24. He reports that he has not used wax softening ear drops as he does not like them. He reports he has been getting warm water in his ears in the shower and then waiting awhile before putting his hearing aids in. Otoscopy reveals non occluding cerumen Au. Improvement noted As compared to previously being visually occluding. Cerumen removal not needed today. Tye reports he has not had any problems with his hearing aids since last visit. N/C for today. Recommendations: Recommendations: Hearing instrument follow-up or maintenance as needed. Diagnosis Code(s): Primary Diagnosis: H90.3 Bilateral Sensorineural Hearing Loss Signature: Provider: Renae Thompson, [facility]
== END 2024-07-26 10:01 | disposition home or self-care (01) ==
LOC: HO.HAP 10:00
PROVIDERS: Visit Provider Family Medicine
DX: Z13.89 Encounter for screening for other disorder (principal)

== ENCOUNTER 2024-11-19 10:30 | Outpatient (REF) | payer SELFPAY ==
--- OUTSIDE RECORDS SUMMARY | 2024-11-19 12:24 | XMS_ITS | Encounter Summary ---
Author Organization [facility] Address [address] [place] [address] Phone Care Team Providers Care Meter Tester Primary Name Role Phone Mickey Rey MD Unavailable [phone] Kelsey Cano MD Unavailable [phone] Ghassan Obrien SANDBLAST CARVER Unavailable [phone] Seth Stout MD Unavailable [phone] Arias Bowie SANDBLAST CARVER Unavailable [phone] Mickey Rey MD Primary Care Provider + [phone] Encounter Details Date Type Department Care Team (Late st Contact Info) Description 03/22/2021 Procedure Pass Non-Invasive Cardiology [address] [place] [address] Social History Tobacco Use Types Packs/Day Years Used Date Smoking Tobacco: Never Smokeless Tobacco: Never Alcohol Use Standard Drinks/Week Comments Yes 2 (1 standard drink = 0.6 oz pur e alcohol) Weekly Child or Family Care Answer Date Record ed Do you have problems with on e of the following making it difficult for you to work, study, or receive health care? No 08/03/2020 Education Answer Date Recorded Are you interested in help w ith more adult education (for example, completing high school, GED, job training, learning the Norwegian language, technical skills, or developing parenting skills)? No 08/03/2020 Are you concerned about learning? Not on file 08/03/2020 Not on file 08/03/2020 Not on file 08/03/2020 Food Answer Date Recorded Within the past 6 months we worried whether our food would run out before we got money to buy more. Never True 08/03/2020 Within the past 6 months the food we bought just didn't last and we didn't have enough money to get more. Never True Paying for Meds Answer Date Recorded Do you have trouble paying for medicines? No 08/03/2020 Paying Utility Bills Answer Date Record ed Do you have trouble paying your heating or elect ricity bill? No 08/03/2020 Transportation Answer Date Recorded Has the lack of transportati on kept you from medical appointments or from getting medications? No 08/03/2020 Sex and Gender Information Value Date Recorded Sex Assigned at Male 07/04/2021 9:33 AM EDT Legal Sex Male 9:51 PM EDT Gender Identity Male 05/20/2021 10:53 AM EDT Sexual Orientation Not on file documented as of this encounter Plan of Treatment Upcoming Encounters Date Type Department Care Team (Late st Contact Info) Description 04/28/2025 9:00 AM EDT Office Visit [facility] Medicine [address] [place] [address] Mickey Rey MD [address] [facility], [address] [place] [address] [email or web address] documented as of this encounter Visit Diagnoses Not on filedocumented in this encounter Additional Health Concerns Infection Onset Date Last Indicated Resolved Time CoV-Risk 06/30/2021 07/04/2021 07/04/2021 8:25 PM EDT CoV-Risk 07/05/2021 07/05/2021 07/05/2021 6:01 PM EDT CoV-Exposed Comment:Recent close contact documented in the COVID-19 Amb Triage Form 03/19/2022 03/22/202203/30/2022 1:[address] CoV-Risk Comment:Per Ambulatory Triage Form 03/22/2022 03/22/202203/22 3:04 PM EST CoV-Presumed 03/22/2022 03/22/2022 04/12/2022 1:21 AM EST CoV-Risk 02/01/2023 02/01/2023 02/12/2023 1:22 AM EST Assessment Noted Time PHQ-2 Depression Total Score: 0 02/17/19 4:18 PM EST documented as of this encounter Care Teams Meter Tester Primary Relationship Specialty Start Date End Date Mickey Rey MD [address] [place] [address], [address] [address] [email or web address] PCP - General Family Medicine 11/07/17 Mickey Rey MD [address] [place] [address], [address] [address] [email or web address] Historical LMR Provider 11/27/16 Kelsey Cano MD [address] [place] [address] Historical LMR Provider 11/27/16 Ghassan Obrien CNP [address] [place] [address], [address] [address] Historical LMR Provider 11/27/16 Seth Stout MD [address] [place] [address], [address] [address] jose Historical LMR Provider 11/27/16 Arias Bowie SANDBLAST CARVER [address] [address] [email or web address] Historical LMR Provider 11/27/16 documented as of this encounter Additional Source Comments The information contained in this document represents components of the legal health record. It is not the complete legal health record.[facility]
--- OUTSIDE RECORDS SUMMARY | 2024-11-19 12:24 | XMS_ITS | Clinical Summary ---
Author Organization [facility] Address [address] [facility] [address] [place] [address] Phone Care Team Providers Care Quality Technician Name Role Phone Mickey Rey MD Unavailable [phone] Kelsey Cano MD Unavailable [phone] Ghassan Obrien MALL MANAGER Unavailable [phone] Seth Stout MD Unavailable [phone] Arias Bowie MALL MANAGER Unavailable [phone] Mickey Rey MD Primary Care Provider + [phone] Allergies Active Allergy Reactions Criticality Noted Date Comments Penicillin Rash Low 01/26/2016 Medications terbinafine HCL (LAMISIL) 1 % cream 1 application to affected area Active betamethasone, augmented, (DIPROLENE) 0.05 % lotion Apply topically as needed. Active ascorbic acid, vitamin C, (VITAMIN C) 500 MG tablet Take 500 mg by mouth daily. Active levalbuterol (XOPENEX HFA) 45 mcg/actuation inhaler Inhale 2 puffs into the lungs every 6 (six) hours as needed for wheezing. 15 g 10/13/19 23 12/24/2 029 Active mupirocin (BACTROBAN) 2 % ointment Apply topically 3 (three) times a day. 22 g 1 01/18/20 24 Active Additional Information Patient not taking.Reported on 09/30/2024 levothyroxine (SYNTHROID, LEVOTHROID) 50 MCG tabletIndications: Acquired hypothyroidism TAKE 1 TABLET BY MOUTH EVERY DAY IN THE MORNING 90 tablet 3 01/25/20 24 Active atorvastatin (LIPITOR) 10 MG tablet TAKE 1 TABLET BY MOUTH EVERY DAY 90 tablet 3 03/26/19 25 Active triamcinolone acetonide 0.5 % cream Apply 0.5 Applications topically as needed. Active budesonide (PULMICORT FLEXHALER) 90 mcg/actuation inhaler Inhale 1 puff into the lungs 2 (two) times a day. 3 each 3 10/23/19 25 Active budesonide (PULMICORT FLEXHALER) 90 mcg/actuation inhaler Inhale 1 puff into the lungs 2 (two) times a day. 3 each 1 04/20/19 25 025 Discontin [facility], or Other Facility Administered Medication Ordered Dose Route Frequency Start Date End Date Status lidocaine (XYLOCAINE) 1% injection 2 mLIndications:Left knee pain 2 mL See Adm Inst Once 09/30/2024 12/29/2024 Active triamcinolone acetonide (KENALOG-40) 40 mg/mL injection 80 mgIndications:Left knee pain 80 mg See Adm Inst Once 09/30/2024 12/29/2024 Active Active Problems Problem Noted Date Diagnosed Date Overweight (BMI 25.0-29.9) 04/26/2024 Peripheral venous insufficiency 04/26/2024 Acute pain of right shoulder 11/29/2023 Assessment & Plan (11/29/2023 12:31 PM EDT): Acute onset following gym workout and reaching movement. Pain initially with certain movements, now a constant dull ache. No numbness or tingling in hand. Clicking sound noted. Physical examination suggests possible rotator cuff strain, but intact muscle function. No clear evidence of full tear. Possible arthritis. -Order shoulder X-ray to assess for arthritis. -Advise patient to avoid heavy lifting and to apply ice for inflammation. -Recommend kebp-iin-dgrbtuf ibuprofen (200mg, 2 tablets as needed) for pain and inflammation. -If no improvement or worsening in a week, patient to consider orthopedic walk- in clinic for further evaluation. -Consider physical therapy referral if no improvement in symptoms. Pain of left calf 03/20/2023 Assessment & Plan (03/20/2023 5:16 PM EST): Patient may have a DVT. Also possible he could have superficial phlebitis or greater saphenous vein. Will refer to the emergency department to check ultrasound (unable to be scheduled in radiology). If ultrasound is unrevealing, likely has muscle strain. Primary localized osteoarthrosis of right lower leg 01/16/2023 Hallux rigidus of left foot 12/06/2021 Palpitations 05/21/2021 PVC (premature ventricular contraction) 05/22/19 Increased prostate specific antigen (PSA) veloci ty 03/17/2021 Hyperuricemia 08/03/2020 Bradycardia 07/28/2020 Allergic rhinitis 01/31/2017 Other hyperlipidemia 01/31/2017 Acquired hypothyroidism 01/31/2017 Assessment & Plan (07/04/2021 2:11 PM EDT): Continue levothyroxine. Mild persistent asthma 01/31/2017 Assessment & Plan (07/05/2021 8:16 AM EDT): He does not have significant bronchospasm on exam I do not see current indication for high-dose steroids. Continue Qvar inhaler as prescribed. Albuterol MDI will be ordered as needed. Eczema 01/31/2017 Hearing loss of both ears 01/31/2017 Resolved Problems Problem Noted Date Diagnosed Date Resolved Date Pneumonia of right lower lob e due to infectious organism 07/04/2021 10/11/2022 Assessment & Plan (07/07/2021 3:58 PM EDT): The patient has had significant fever at home, but no current criteria for sepsis here. He remains hemodynamically stable with reassuring lactic acid level. He has intermittent desaturation as low as 84% on room air in the emergency department. No chest pain or evidence for ACS. He appears euvolemic on exam, with mild hyponatremia and NATALEE secondary to illness and decreased oral intake. No history of immunocompromise. No sick contacts. He has been testing negative for COVID-19, and has been vaccinated with third and fourth booster doses. Has cough with deep breaths Hiccuping is improving Saturation improved over night Fever curve continues to improve, last fever was 9pm last night Titrate supplemental oxygen to keep pulse oximetry greater than 92% Continue Rocephin 1 g IV daily and azithromycin 250 mg orally daily for community-acquired pneumonia Continue IV fluid hydration with LR at 100 cc/h until oral intake improves Check sputum culture if patient can expectorate, check streptococcal and Legionella urinary antigens Add guaifenesin 600 mg twice daily and Tessalon Perles three times daily Will give trial of baclofen for hiccups, though may be from pleural irritation Atypical chest pain 05/21/2021 09/22/19 Assessment & Plan (05/21/2021 10:02 AM EDT): His atypical symptoms do not sound coronary and we have a high quality negative nuclear stress. PVCs could be explaining it although not typical palpitations. Either way I dont think its anything Im too worried about. MSK vs. GERD is also an option. He will continue ot monitor symptoms for now if any escalation we can re assess, they could consider a trial of a BB to subdue PVCs if we feel this is th ecause but he is happy for now leaving things alone and I agree. Encounters Date Type Department Care Team Description 09/30/2024 9:30 AM EDT Office Visit [facility] [address] [place] [address] Jensen Tripathi MD Primary localized osteoarthrosis of left lower leg (Primary Dx); Left knee pain 09/24/2024 Orders Only [facility] [address] [place] [address] [place] Left knee pain (Primary Dx) from Last 3 Months Immunizations Immunization Administration Dates Next Due COVID-19 (Pre-11/28) Pfizer Vaccine, mRNA, PF 05/22/2020,04/29/2020 COVID-19 (Pre-11/28) Pfizer Vaccine, mRNA, edmond-sucrose, PF 06/09/2021 COVID-19 Moderna Spikevax Vaccine 12+ 10/23/2023 INFLUENZA, SPLIT VIRUS, TRIVALENT PF 01/26/2016 INFLUENZA, SPLIT VIRUS, TRIV ALENT W/ PRESERVATIVE IM 01/01/2013,01/05/2011 Influenza High-Dose Trivalen t Preservative Free IM 10/23/2023 Influenza Quadrivalent Adjuv anted Preservative Free IM 11/04/2022 Influenza Quadrivalent Prese rvative Free IM 12/10/2021,12/02/2020,11/14/2019,01/31,12/12/2014 Influenza Recombinant Yue valent Preservative Free IM 11/29/2018,01/24/2018 Influenza Trivalent Adjuvant ed Preservative free IM 10/23/2023 Influenza trivalent preserva tive free intradermal 11/26/2013 Pneumococcal conjugate PCV13 01/22/2014 Pneumococcal conjugate PCV20 10/11/2022 Pneumococcal polysaccharide PPSV23 12/15/2009 Td (adult),2 Lf Tetanus Toxo id, PF, Adsorbed 01/28/2021 Tdap 05/05/2010 Zoster recombinant 08/04/2020,03/21/2020 Family History Medical History Relation Comments Cancer Father 2 Relation Status Comments Father 1 Father 2 Social History Tobacco Use Types Packs/Day Years Used Date Smoking Tobacco: Never Smokeless Tobacco: Never Tobacco Cessation:Counseling Given: Not Answered Alcohol Use Standard Drinks/Week Comments Not Currently 2 (1 standard drink = 0.6 oz pur e alcohol) Weekly Child or Family Care Answer Date Record ed Do you have problems with on e of the following making it difficult for you to work, study, or receive health care? No 04/26/2024 Education Answer Date Recorded Are you interested in help w ith more adult education (for example, completing high school, GED, job training, learning the Tog[place] language, technical skills, or developing parenting skills)? No 04/18/2023 Are you concerned about learning? Not on file 04/18/2023 No 04/18/2023 Yes 04/18/2023 Food Answer Date Recorded Within the past 6 months we worried whether our food would run out before we got money to buy more. Never True 04/26/2024 Within the past 6 months the food we bought just didn't last and we didn't have enough money to get more. Never True Residential Stability Answer Date Recor ded What is your housing situation today? I have kath silva 04/26/2024 How many times have you move d in the past 12 months? Zero (I did not move) 04/26/2024 Paying for Meds Answer Date Recorded Do you have trouble paying for medicines? No 04/26/2024 Paying Utility Bills Answer Date Record ed Do you have trouble paying your heating or elect ricity bill? No 04/26/2024 Transportation Answer Date Recorded Has the lack of transportati on kept you from medical appointments or from getting medications? No 04/26/2024 Unemployment Answer Date Recorded Are you currently unemployed or working on a part-time or temporary basis, and looking for work? No 04/12/2022 Digital Access Answer Date Recorded No 04/26/2024 Yes 04/26/2024 Do you have reliable internet access at home? Ye s 04/26/2024 Do you have a device (e.g., phone, tablet, computer) with a working camera? Yes 04/26/2024 Intimate Partner Violence Answer Date R ecorded Are you denied basic needs s uch as food, clothing, or medical care? No 04/26/2024 In the past 12 months have y ou been in a relationship with a person who hurts, threatens, or tries to control you? No 04/26/2024 Are you denied basic needs s uch as food, clothing, or medical care? No 04/26/2024 In the past 12 months have y ou been in a relationship with a person who hurts, threatens, or tries to control you? No 04/26/2024 Sex and Gender Information Value Date Recorded Sex Assigned at Male 07/04/2021 9:33 AM EDT Legal Sex Male 9:51 PM EDT Gender Identity Male 05/20/2021 10:53 AM EDT Sexual Orientation Not on file Last Filed Vital Signs Vital Sign Reading Time Taken Comments Blood Pressure 120/70 04/26/2024 8:38 AM EDT Pulse 60 04/26/2024 8:38 AM EDT Temperature 35.7 C (96.2 F) 04/26/2024 8:38 AM EDT Respiratory Rate 18 08/07/2023 11:24 AM EDT Oxygen Saturation 98% 04/26/2024 8:38 AM EDT Inhaled Oxygen Concentration - - Weight 82.1 kg (181 lb) 09/30/2024 9:54 AM EDT Height 180.3 cm (5' 11 ) 09/30/2024 9:54 AM EDT Body Mass Index 25.24 09/30/2024 9:54 AM EDT Plan of Treatment Upcoming Encounters Date Type Department Care Team (Late st Contact Info) Description 04/28/2025 9:00 AM EDT Office Visit [facility] [address] [place] [address] Mickey Rey MD [address] [facility] [place] [address] [email or web address] Health Maintenance Due Date Last Done Comments COLOGUARD 2002 FIT TEST 2002 FOBT 2002 SIGMOIDOSCOPY 2002 VIRTUAL COLONOSCOPY 2002 RSV VACCINE (1 - Risk 50-74 years 1-dose series) 07/18/2007 INFLUENZA VACCINE (#1) 2024 , 10/23/2023, 11/04/2022, Additional history exists COVID-19 VACCINE ( season) 2024 10/23/2023, 05/03/2023, 11/04/2022, Additional history exists TSH LEVEL 01/22/2025 01/23/2024, 09/07, 08/24/2021, Additional history exists DEPRESSION SCREENING 04/26/2025 04/26/2024 SCREENING FOR DIABETES 10/03/2025 10/03/2022 COLONOSCOPY 06/15/2028 06/15/2018, 11/16/2007 COLORECTAL CANCER SCREENING 06/15/2028 LIPID PANEL 01/22/2029 01/23/2024, 09/07, 08/24/2021, Additional history exists Adult Td,Tdap Booster 01/28/2031 01/28/2021, 011 HEPATITIS C SCREENING Completed 02/09/2018 ZOSTER VACCINES Completed 08/04/2020, 03/21/2020 PNEUMOCOCCAL VACCINES (50+ years) Completed 10/11/2022, 01/22/2014, 12/15/2009 SMOKING STATUS SCREENING (Once After 26 Yrs) Completed 09/30/2024 HEPATITIS A VACCINES Aged Out No long er eligible based on patient's age to complete this topic HIB VACCINES Aged Out No longer eligi ble based on patient's age to complete this topic MENINGOCOCCAL VACCINES (ACWY) Aged Out No longer eligible based on patient's age to complete this topic MENINGOCOCCAL VACCINES (B) Aged Out N o longer eligible based on patient's age to complete this topic Medical Devices Not on file Procedures Procedure Name Priority Date/Time Associated Diagnosis Comments XR KNEE (LEFT) Routine 09/24/2024 11:12 AM EDT Left knee pain TSH WITH REFLEX Routine 01/23/2024 10:34 AM EST Acquired hypothyroidism LIPID PANEL Routine 01/23/2024 10:33 AM EST Acquired hypothyroidism ENDOSCOPY, COLON 06/15/2018 8:28 AM EDT HEPATITIS C ANTIBODY, QUALITATIVE Routine 02/09/2018 9:44 AM EST Annual physical exam from Last 3 Months or Most Recently Relevant to Health Maintenance Results * TSH with reflex (01/23/2024 10:34 AM EST) TSH 1.86 0.27 - 4.20 uIU/mL [facility] Blood 01/23/2024 10:3 4 AM EST 01/23/2024 10:37 AM EST us Mickey Rey MD LAB BLOOD ORDERABLES Final Result [facility] [address] [place] [address] * (ABNORMAL) Lipid panel (01/23/2024 10:33 AM EST) HDL 55 mg/dL [facility] Comment: Interpretation <40 mg/dL: Low HDL cholesterol (major risk factor for CHD) Greater than or equal to 60 mg/dL: High HDL cholesterol ( negative risk factor for CHD) HDL - cholesterol is affected by a number of factors, e.g. smoking, excerise, hormones, sex and age. CHOLESTEROL 170 0 - 240 mg/dL [facility] TRIGLYCERIDES 117 30 - 160 mg/dL [facility] LDL 92 50 - 129 mg/dL [facility] Comment: LDL levels in terms of risk for coronary heart disease: <100 mg/dL: Optimal 100-129 mg/dL: Near or above optimal 130-159 mg/dL: Borderline high 160-189 mg/dL: High >190 mg/dL: Very High CARDIAC RISK RATIO 3.1(L) 3.4 - 5.0 C [facility] Blood 01/23/2024 10:3 3 AM EST 01/23/2024 10:37 AM EST us Mickey Rey MD LAB BLOOD ORDERABLES Final Result [facility] [address] [place] [address] * ENDOSCOPY, COLON (06/15/2018 8:28 AM EDT) Narrative Transcriptions Ji Eastman MD - 06/15/2018 8:28 AM EDT Patient Name: Tye Spain MD:: JI EASTMAN MD Procedure Date: 06/15/2018 8:28 AM Date of : 1955 Age: 62 Admit Type: Outpatient Gender: Male Room: [facility] 04 Referring MD: MICKEY REY MD Exam Type: Colonoscopy Indications: Screening for colorectal malignant neoplasm Medications: Monitored Anesthesia Care Procedure: Informed consent was obtained from the patient after discussion of the indications, limitations,alternatives, benefits, and risks of the procedure. Risksspecifically discussed include but are not limited to medication reactions, missed lesions, bleeding, perforation, orthe need for emergent surgery. Throughout the procedure, the patient's blood pressure, pulse, end-tidal CO2, and oxygen saturations were monitored continuously. The Olympus adult variable colonoscope [id number] #7 was introduced through the anus and advanced to the cecum, identified by the appendiceal orifice, IC valve and transillumination. The colonoscopy was performedwithout difficulty. The patient tolerated the procedure well.The quality of the bowel preparation was good. Complications: No immediate complications. Findings: The entire examined colon appeared normal on direct and retroflexion views. Impression: - The entire examined colon is normal on direct and retroflexion views. - No specimens collected. Recommendation: - Discharge patient to home. - Resume previous diet. - Continue present medications. - Repeat colonoscopy in 10 years for screeningpurposes. - Return to my office in 10 years. JI EASTMAN MD 06/15/2018 8:55:53 AM This report has been signed electronically. Number of Addenda: 0 Note Initiated On: 06/15/2018 8:28 AM Procedure Code(s): --- Professional --- 29772, Colonoscopy, flexible; diagnostic, including collection of specimen(s) by brushing or washing, when performed (separateprocedure) --- Technical --- 28527, Colonoscopy, flexible; diagnostic, including collection of specimen(s) by brushing or washing, when performed (separateprocedure) Diagnosis Code(s): --- Professional --- Z12.11, Encounter for screening for malignant neoplasm of colon --- Technical --- Z12.11, Encounter for screening for malignant neoplasm of colon CPT copyright 2016 [employer]. All rights reserved. The codes documented in this report are preliminary and upon residential framing carpenter reviewmay be revised to meet current compliance requirements. [address] [place] [address] Mickey Rey MD GI PROCEDURE ORDERABLES Fi nal Result * Hepatitis C antibody, qualitative (02/09/2018 9:44 AM EST) HCV Negative Negative [facility] Comment: This is a screening test and should be confirmed with molecular testing Blood 02/09/2018 9:44 AM EST 02/09/2018 9:46 AM EST Mickey Rey MD LAB BLOOD ORDERABLES Final Result [address] [address] from Last 3 Months or Most Recently Relevant to Health Maintenance Insurance CHOICE [employer] [facility] CHOICE CHOICE CHOICE CHOICE CHOICE CHOICE CHOICE [facility] CHOICE Advance Directives For more information, please contact: [phone] (9AM - 5PM [facility], Monday-Monday) * Full Code (Latest Code Status on File) Date Activated Date Inactivated Comments 07/04/2021 2:17 PM Question Answer Comments Code Status Confirmed With: Patient Care Teams Quality Technician Relationship Specialty Start Date End Date Mickey Rey MD [address] [place] [address], [address] [address] PCP - General Family Medicine 11/07/17 Mickey Rey MD [address] [place] [address], [address] [address] Historical LMR Provider 11/27/16 Kelsey Cano MD [address] [place] [address], [address] [address] Historical LMR Provider 11/27/16 Ghassan Obrien, MALL MANAGER [address] [place] [address], [address] [place] [address] Historical LMR Provider 11/27/16 Seth Stout MD [address] [facility] [place] [address] jose Historical LMR Provider 11/27/16 Arias Bowie CNP [address] [facility] [place] [address] [email or web address] Historical LMR Provider 11/27/16 Additional Source Comments The information contained in this document represents components of the legal health record. It is not the complete legal health record.[facility]
--- OUTSIDE RECORDS SUMMARY | 2024-11-19 12:24 | XMS_ITS | Encounter Summary ---
Author Organization [facility] Address [address] [place] [address] Phone Care Team Providers Care Production Engine Repairer Name Role Phone Mickey Rey MD Unavailable [phone] Kelsey Cano MD Unavailable [phone] Sarkis Mosquera TAILER OFF Unavailable Ghassan Obrien [employer] OPERATIONS MANAGER Unavailable [phone] Erica Eastman MD Unavailable [phone] George Martinez MD Unavailable [phone] Seth Stout MD Unavailable [phone] Arias Bowie AIRBORNE OPERATIONS MANAGER Unavailable [phone] Mickey Rey MD Primary Care Provider [phone] Encounter Details Date Type Department Care Team (Late st Contact Info) Description 06/15/2018 Procedure Pass [facility] Endoscopy Admitting Dept Virtual Department [address] [place] [address] Social History Tobacco Use Types Packs/Day Years Used Date Smoking Tobacco: Never Smokeless Tobacco: Never Alcohol Use Standard Drinks/Week Comments Yes 2 (1 standard drink = 0.6 oz pur e alcohol) Weekly Sex and Gender Information Value Date Recorded Sex Assigned at Male 07/04/2021 9:33 AM EDT Legal Sex Male 9:51 PM EDT Gender Identity Male 05/20/2021 10:53 AM EDT Sexual Orientation Not on file documented as of this encounter Plan of Treatment Upcoming Encounters Date Type Department Care Team (Late st Contact Info) Description 04/28/2025 9:00 AM EDT Office Visit [facility] [address] [place] [address] [place] [address] Mickey eRy MD [address] [place] [address], [address] [place] [address] .Head Held High documented as of this encounter Visit Diagnoses Not on filedocumented in this encounter Additional Health Concerns Infection Onset Date Last Indicated Resolved Time CoV-Risk 06/30/2021 07/04/2021 07/04/2021 8:25 PM EDT CoV-Risk 07/05/2021 07/05/2021 07/05/2021 6:01 PM EDT CoV-Exposed Comment:Recent close contact documented in the COVID-19 Amb Triage Form 03/19/2022 03/22/2022 03/30/2022 1:[address] CoV-Risk Comment:Per Ambulatory Triage Form 03/22/2022 03/22/202203/22 3:04 PM EST CoV-Presumed 03/22/2022 03/22/2022 04/12/2022 1:21 AM EST CoV-Risk 02/01/2023 02/01/2023 02/12/2023 1:22 AM EST Assessment Noted Time PHQ-2 Depression Total Score: 0 02/09/19 9:11 AM EST documented as of this encounter Care Teams Production Engine Repairer Relationship Specialty Start Date End Date Mickey Rey MD [address] [place] [address], [address] [place] [address] PCP - General Family Medicine 11/07/17 Mickey Rey MD [address] [place] [address], [address] [place] [address] Historical LMR Provider 11/27/16 Kelsey Cano MD [address] [place] [address], [address] [place] [address] Historical LMR Provider 11/27/16 Sarkis Mosquera, KHADIJAH [address] [place] [address] [address] [address] [email or web address] Historical LMR Provider 11/27/16 02/13/21 Ghassan Obrien CNP [address] [place] [address], [address] [place] [address] Historical LMR Provider 11/27/16 Erica Eastman MD [address] [place] [address], 2[address] [place] [address] Historical LMR Provider 11/27/16 George Martinez MD [address] [place] [address], [address] [place] [address] Historical LMR Provider 11/27/16 02/13/21 Seth Stout MD [address] [place] [address], [address] [place] [address] jose Historical LMR Provider 11/27/16 Arias Bowie, AIRBORNE OPERATIONS MANAGER [address] [facility], [address] [place] [id number] [email or web address] Historical LMR Provider 11/27/16 documented as of this encounter Additional Source Comments The information contained in this document represents components of the legal health record. It is not the complete legal health record.[facility]
--- OUTSIDE RECORDS SUMMARY | 2024-11-19 12:24 | XMS_ITS | Encounter Summary ---
Author Organization [facility] Address [address] [facility] [address] [place] [address] Phone Care Team Providers Care Honey Producer Name Role Phone Mickey Rey MD Unavailable [phone] Kelsey Cano MD Unavailable [phone] Ghassan Obrien GEOSPATIAL ANALYST Unavailable [phone] Seth Stout MD Unavailable [phone] Arias Bowie GEOSPATIAL ANALYST Unavailable [phone] Mickey Rey MD Primary Care Provider + [phone] Encounter Details Date Type Department Care Team (Late st Contact Info) Description 04/20/2021 Ancillary Orders Non-Invasive Cardiology [address] [place] [address] Mickey Rey MD [address] [facility], [address] [place], [place] [id number] [email or web address] Atypical chest pain; Abnormal stress ECG Social History Tobacco Use Types Packs/Day Years [...] high school, GED, job training, learning the [place] language, technical skills, or developing parenting skills)? [...] Description 04/28/2025 9:00 AM EDT Office Visit [facility] [address] [place] [address] [place] [address] Mickey Rey MD [address] [facility], [address] [place] [address] documented as of this encounter Results * NC Stress Result for Nuclear Stress Test (04/20/2021 10:31 AM EDT) Max BP Systolic 180 mmHg [facility] Max BP Diastolic 70 mmHg [facility] Max HR 148 BPM [facility] Resting HR 58 BPM [facility] Resting BP Systolic 118 mmHg [facility] Resting BP Diastolic 81 mmHg [facility] Peak METS 13.4 METS [facility] Peak HR 146 BPM [facility] Anatomical Region Laterality Modality Heart Other 04/20/2021 9:56 AM EDT 04/20/2021 10:30 AM EDT Narrative 04/20/2021 12:25 PM EDT Response to Stress The patient exercised for minutes seconds, achieving 13.4 METS at peak exercise. Baseline blood pressure was 118/81 mmHg, and baseline heart rate was 58 bpm. The patient achieved a peak heart rate of 146 bpm, which is% of their maximum predicted heart rate. REPORT- Pt exercised for 10:01 min on a DAMIEN protocol achieving 13.4 METS. Test terminated due to fatigue. Baseline resting HR was 52 bpm. Max heart rate achieved was 148 BPM (94% MPHR). 1. EKG - Baseline EKG showed sinus bradycardia. During exercise, there were up to 1 mm horizontal to up-sloping ST depressions in the inferolateral leads and V4-V6. 2. SYMPTOMS - No chest pain. 3. EXERCISE PHYSIOLOGY - High functional capacity for age. BP 110/80 at rest, 166/90 during exercise, and 130/80 upon discharge from stress lab. 4. ARRHYTHMIAS - Occasional, isolated PVCs. Rare ventricular couplets noted. Short runs of ventricular bigeminy noted. Conclusion - EKG portion of testing with changes suggestive of ischemia. No symptoms concerning for angina. Nuclear images pending and will be reported separately. Sameera Lara NP-C with Dr Strickland. us Mickey Rey MD CV NM CARDIAC Final Resu lt documented in this encounter Visit Diagnoses Diagnosis Atypical chest pain Other chest pain Abnormal stress ECG Atypical chest pain Other chest pain Abnormal stress ECG documented in this encounter Additional Health Concerns Infection [...] documented as of this encounter Care Teams Honey Producer Relationship Specialty Start Date End Date Mickey Rey MD [address] [place] [address] PCP - General Family Medicine 11/07/17 Mickey Rey MD [address] [place] [address], [address] [address] Historical LMR Provider 11/27/16 Kelsey Cano MD [address] [place] [address] Historical LMR Provider 11/27/16 Ghassan Obrien CNP [address] [place] [address], [address] [address] Historical LMR Provider 11/27/16 Seth Stout MD [address] [place] [address] jose Historical LMR Provider 11/27/16 Arias Bowie GEOSPATIAL ANALYST [address] [facility], [address] [place] [address] [email or web address] Historical LMR Provider 11/27/16 documented as of this encounter Additional Source Comments The information contained in this document represents components of the legal health record. It is not the complete legal health record.[facility]
--- OUTSIDE RECORDS SUMMARY | 2024-11-19 12:24 | XMS_ITS | Encounter Summary ---
Author Organization [facility] Address [address] [place] [address] Phone Care Team Providers Care Corporate Development Officer Name Role Phone Mickey Rey MD Unavailable [phone] Kelsey Cano MD Unavailable [phone] Ghassan Obrien CLINICAL DERMATOLOGIST Unavailable [phone] Seth Stout MD Unavailable [phone] Arias Bowie CLINICAL DERMATOLOGIST Unavailable [phone] Mickey Rey MD Primary Care Provider [phone] Encounter Details Date Type Department Care Team (Late st Contact Info) Description 10/28/2021 Procedure Pass [address] [place] [address] Social History Tobacco Use Types Packs/Day Years Used Date Smoking Tobacco: Never Smokeless Tobacco: Never Alcohol Use Standard Drinks/Week Comments Not Currently [...] high school, GED, job training, learning the [place] language, technical skills, or developing parenting skills)? [...] Description 04/28/2025 9:00 AM EDT Office Visit [facility] [address] [place] [address] [place] [address] Mickey Rey MD [address] [place] [address], [address] [place] [address] [email or web address] documented as of this encounter Visit Diagnoses Not on filedocumented in this encounter Additional Health Concerns Infection Onset Date Last Indicated Resolved Time CoV-Exposed Comment:Recent close contact documented in the COVID-19 Amb Triage Form 03/19/2022 03/22/2022 03/30/2022 1:[address] CoV-Risk Comment:Per Ambulatory Triage Form 03/22/2022 03/22/202203/22 3:04 PM EST CoV-Presumed 03/22/2022 03/22/2022 04/12/2022 1:21 AM EST CoV-Risk 02/01/2023 02/01/2023 02/12/2023 1:22 AM EST Assessment Noted Time PHQ-2 Depression Total Score: 0 02/17/19 4:18 PM EST documented as of this encounter Care Teams Corporate Development Officer Relationship Specialty Start Date End Date Mickey Rey MD [address] [place] [address], [address] [place] [address] PCP - General Family Medicine 11/07/17 Mickey Rey MD [address] [place] [address], [address] [place] [address] Historical LMR Provider 11/27/16 Kelsey Cano MD [address] [place] [address], [address] [place] [address] Historical LMR Provider 11/27/16 Ghassan Obrien CNP [address] [place] [address], [address] [place] [address] Historical LMR Provider 11/27/16 Seth Stout MD [address] [place] [address], [address] [place] [address] jose Historical LMR Provider 11/27/16 Arias Bowie CLINICAL DERMATOLOGIST [address] [place] [address], [address] [place] [address] Historical LMR Provider 11/27/16 documented as of this encounter Additional Source Comments The information contained in this document represents components of the legal health record. It is not the complete legal health record.[facility]
== END 2024-11-19 10:31 | disposition home or self-care (01) ==
LOC: HO.HAP 10:30
PROVIDERS: Visit Provider Family Medicine
DX: Z46.1 Encounter for fitting and adjustment of hearing aid (principal); H90.3 Sensorineural hearing loss, bilateral
CPT/HCPCS: 92593; V5267